=== PATIENT | female | born 1955 | race Caucasian/White ===

== ENCOUNTER 2020-04-18 14:33 | Emergency (ER) | payer MEDICARE, OTHER, SELFPAY ==
[~2020-04-18] VITALS: Ht 162.6 cm; Wt 122.2 kg
[2020-04-18 15:29] LABS: BASOPHILS % (AUTO) 1 % (0-1); EOSINOPHILS % (AUTO) 4 % (1-7); LYMPHOCYTES % (AUTO) 24 % (22-44); MEAN CORPUSCULAR HEMOGLOBIN 31.2 pg (27.0-34.8); MEAN CORPUSCULAR HGB CONC 33.7 g/dL (32.4-35.8); MEAN PLATELET VOLUME 8.4 fL (7.4-10.4); MONOCYTES % (AUTO) 6 % (2-9); NEUTROPHILS % (AUTO) 65 % (42-75); PLATELET COUNT 179 x10^3/uL (130-400); RED BLOOD COUNT 5.57 x10^6/uL (3.82-5.3); RED CELL DISTRIBUTION WIDTH 13.4 % (9.6-15.2)
[2020-04-18 15:31] LABS: ALANINE AMINOTRANSFERASE 30 U/L (12-78); ALBUMIN 3.6 g/dL (3.4-5.0); ANION GAP 4 mmol/L (5-15); CALCIUM 8.9 mg/dL (8.5-10.1); CHLORIDE 108 mmol/L (98-107); CREATININE 1.21 mg/dL (0.55-1.02)
[2020-04-18 15:36] LABS: ALKALINE PHOSPHATASE 89 U/L (45-117); BILIRUBIN,TOTAL 0.4 mg/dL (0.2-1.0); TOTAL PROTEIN 7.2 g/dL (6.4-8.2); TROPONIN I < 0.015 ng/mL (0.000-0.045)
--- NOTE | 2020-04-18 15:42 | NUR ---
PT CAME IN CO OF SOB AND "CHEST PRESSURE" X 2-3 MONTHS. PT WAS ALSO SENT FROM FOR HYPERTENSION. PT AMBULATED TO ROOM UNASSISTED. PT RESTING IN GURNEY. CONNECTED TO MONITORING EQUIPMENT. EKG COMPLETE
[2020-04-18 16:06] LABS: MD NO
[2020-04-18 17:01] VITALS: BP 160/84
--- NOTE | 2020-04-18 17:02 | NUR ---
PT UP FOR RECHECK. PT RESTING IN [facility]. VSS. NAD
[2020-04-18] MEDS ORDERED: CEFTRIAXONE 1,000 MG ONE (17:08)
[2020-04-18] MEDS ORDERED: CEFTRIAXONE 1,000 MG IM ONE (17:30)
== END 2020-04-18 17:34 | disposition home or self-care (01) ==
LOC: ED 17:28
DX: J15.9 Unspecified bacterial pneumonia (principal); R94.31 Abnormal electrocardiogram [ECG] [EKG]; R06.02 Shortness of breath; I10 Essential (primary) hypertension; F17.210 Nicotine dependence, cigarettes, uncomplicated
CPT/HCPCS: 36415; 71045; 80053; 83880; 84484; 85025; 93005; 96372; 99285; 99406; J0696

== ENCOUNTER 2020-08-04 18:16 | Emergency (ER) | payer MEDICARE ==
[~2020-08-04] VITALS: Ht 160 cm; Wt 119.7 kg
--- NOTE | 2020-08-04 18:36 | NUR ---
TIRE CARE MANAGER NOTE: PT'S URINE COLLECTED BY EDT, SENT TO LAB. PT AWAITING ROOM ASSIGNMENT IN LOBBY AT THIS TIME.
[2020-08-04 18:48] LABS: MICROSCOPIC NOT IND
[2020-08-04 18:57] LABS: BASOPHILS % (AUTO) 1 % (0-1); EOSINOPHILS % (AUTO) 3 % (1-7); LYMPHOCYTES % (AUTO) 21 % (22-44); MEAN CORPUSCULAR HEMOGLOBIN 32.1 pg (27.0-34.8); MEAN CORPUSCULAR HGB CONC 34.6 g/dL (32.4-35.8); MEAN PLATELET VOLUME 8.8 fL (7.4-10.4); MONOCYTES % (AUTO) 5 % (2-9); NEUTROPHILS % (AUTO) 69 % (42-75); PLATELET COUNT 174 x10^3/uL (130-400); RED BLOOD COUNT 5.54 x10^6/uL (3.82-5.3); RED CELL DISTRIBUTION WIDTH 13.8 % (9.6-15.2)
[2020-08-04 19:00] LABS: MD NO
[2020-08-04 19:10] LABS: ALANINE AMINOTRANSFERASE 28 U/L (12-78); ALBUMIN 3.7 g/dL (3.4-5.0); ANION GAP 6 mmol/L (5-15); CALCIUM 8.9 mg/dL (8.5-10.1); CHLORIDE 108 mmol/L (98-107); CREATININE 1.53 mg/dL (0.55-1.02)
[2020-08-04 19:12] LABS: ALKALINE PHOSPHATASE 74 U/L (45-117); BILIRUBIN,TOTAL 0.5 mg/dL (0.2-1.0); TOTAL PROTEIN 7.1 g/dL (6.4-8.2)
--- NOTE | 2020-08-04 19:45 | NUR ---
PT TO TRIAGE FOR VS RECHECK AT THIS TIME. PT AMBULATORY NO ASSIST
--- NOTE | 2020-08-04 20:36 | NUR ---
PT TO ROOM FROM LOBBIE Addendum: 08/04/20 at 2037 by MALU LOBBY*
[2020-08-04 20:48] VITALS: BP 162/73
--- NOTE | 2020-08-04 21:50 | NUR ---
PT WALKED OUT SELF WITH STEADY GAIT. IF S&S WORSEN RETURN TO ER.
== END 2020-08-04 21:52 | disposition home or self-care (01) ==
LOC: ED 21:23
DX: S39.012A Strain of muscle, fascia and tendon of lower back, initial encounter (principal); I10 Essential (primary) hypertension; F17.200 Nicotine dependence, unspecified, uncomplicated; X58.XXXA Exposure to other specified factors, initial encounter; Y93.89 Activity, other specified; Y92.89 Other specified places as the place of occurrence of the external cause; Y99.8 Other external cause status
CPT/HCPCS: 36415; 80053; 81003; 85025; 99283

== ENCOUNTER → 2020-08-10 | Outpatient (CLI) | payer MEDICARE | END | disposition home or self-care (01) | LOC: CFH 14:09 | PROVIDERS: ATTEND Internal Medicine | DX: J43.2 Centrilobular emphysema (principal); R91.8 Other nonspecific abnormal finding of lung field; G47.33 Obstructive sleep apnea (adult) (pediatric) | CPT/HCPCS: 71250 ==

== ENCOUNTER → 2020-11-09 | Outpatient (CLI) | payer MEDICARE ==
[~2020-11-09] MED LIST: ALBU8.5H8 INH; IBUP-1623 PO; LISI1TAB20 PO
[2020-11-09 13:12] LABS: ALANINE AMINOTRANSFERASE 29 U/L (12-78); ALBUMIN 3.4 g/dL (3.4-5.0); ANION GAP 5 mmol/L (5-15); CALCIUM 8.4 mg/dL (8.5-10.1); CHLORIDE 110 mmol/L (98-107); CREATININE 1.12 mg/dL (0.55-1.02)
[2020-11-09 13:16] LABS: ALKALINE PHOSPHATASE 72 U/L (45-117); BILIRUBIN,TOTAL 0.6 mg/dL (0.2-1.0)
[2020-11-09 13:28] LABS: BASOPHILS % (AUTO) 1 % (0-1); EOSINOPHILS % (AUTO) 3 % (1-7); LYMPHOCYTES % (AUTO) 23 % (22-44); MEAN CORPUSCULAR HEMOGLOBIN 32.5 pg (27.0-34.8); MEAN CORPUSCULAR HGB CONC 34.8 g/dL (32.4-35.8); MEAN PLATELET VOLUME 8.6 fL (7.4-10.4); MONOCYTES % (AUTO) 5 % (2-9); NEUTROPHILS % (AUTO) 67 % (42-75); PLATELET COUNT 161 x10^3/uL (130-400); RED BLOOD COUNT 5.41 x10^6/uL (3.82-5.3); RED CELL DISTRIBUTION WIDTH 13.6 % (9.6-15.2)
[2020-11-09 13:35] LABS: INTERNATIONAL NORMALIZED RATIO 0.96 (0.93-1.1); PROTHROMBIN TIME 10.3 Seconds (9.6-11.5)
== END | disposition home or self-care (01) ==
LOC: STAR 11:55
PROVIDERS: ATTEND Neurological Surgery
DX: Z01.818 Encounter for other preprocedural examination (principal); N95.0 Postmenopausal bleeding; N85.00 Endometrial hyperplasia, unspecified; D07.1 Carcinoma in situ of vulva; R94.31 Abnormal electrocardiogram [ECG] [EKG]; Z20.822 Contact with and (suspected) exposure to COVID-19
CPT/HCPCS: 36415; 71046; 80053; 85025; 85610; 85730; 86304; 93005; U0003; U0005

== ENCOUNTER 2020-11-15 12:58 | Day surgery (SDC) | payer MEDICARE ==
[~2020-11-15] VITALS: Ht 160 cm; Wt 115.6 kg
[2020-11-15] MEDS ORDERED: ACET325T14 PO (13:46)
[2020-11-15 13:48] VITALS: BP 126/81
[2020-11-15] MEDS ORDERED: CHLORHEXIDINE 15 ML UDC ONE (13:50)
[2020-11-15] MEDS ORDERED: CHLORHEXIDINE 15 ML UDC PO ONE (14:00)
[2020-11-15] MEDS ORDERED: CEFOTETAN PMX 2GM/50ML 50 ML IVPB ONE (14:00)
[2020-11-15] MEDS ORDERED: LACTATED RINGERS 1,000 ML IV SCH (14:00)
[2020-11-15] MEDS ORDERED: BUPIVACAINE/PF 0.25% ONE (14:00)
[2020-11-15] MEDS ORDERED: HEPARIN 1,000 UNITS/ML, 10ML ONE (14:01)
[2020-11-15] MEDS ORDERED: INDOCYANINE GREEN 25 MG VIAL ONE (14:01)
[2020-11-15] MEDS ORDERED: EPINEPHRINE 1 MG/ML, 1ML ONE (14:01)
[2020-11-15] MEDS ORDERED: MIDAZOLAM 1 MG/ML, 2ML ONE (15:25)
[2020-11-15] MEDS ORDERED: FENTANYL PF 250 MCG/5ML ONE (15:25)
[2020-11-15] MEDS ORDERED: ROCURONIUM 10MG/ML,5ML ONE (15:26)
[2020-11-15] MEDS ORDERED: CEFOTETAN 2 GM ONE (15:31)
[2020-11-15] MEDS ORDERED: DEXAMETHASONE 4 MG/ML, 1ML ONE (15:31)
[2020-11-15] MEDS ORDERED: EPHEDRINE 50 MG/ML, 1ML ONE (15:48)
[2020-11-15] MEDS ORDERED: ONDANSETRON 2MG/ML, 2ML IVPush PRN (16:30)
[2020-11-15] MEDS ORDERED: LABETALOL 5MG/ML, 20ML IV PRN (16:30)
[2020-11-15] MEDS ORDERED: PROMETHAZINE 25 MG/ML, 1ML IVPush PRN (16:30)
[2020-11-15] MEDS ORDERED: MEPERIDINE/PF 25MG/0.5ML IVPush PRN (16:30)
[2020-11-15] MEDS ORDERED: ACETAMINOPHEN 325 MG TABLET PO PRN (16:30)
[2020-11-15] MEDS ORDERED: OXYcodone 5 MG/5 ML ORAL.SOL UDC PO PRN (16:30)
[2020-11-15] MEDS ORDERED: HYDROmorphone 1 MG/ML, 1ML INJ IVPush PRN (16:30)
[2020-11-15] MEDS ORDERED: hydrALAzine 20 MG/ML, 1ML IV PRN (16:30)
[2020-11-15] MEDS ORDERED: PROPOFOL 10 MG/ML, 20ML ONE (16:43)
[2020-11-15] MEDS ORDERED: KETOROLAC 30 MG/1 ML ONE (16:43)
[2020-11-15] MEDS ORDERED: ONDANSETRON 2MG/ML, 2ML ONE ×2 (16:45→18:34)
[2020-11-15] MEDS ORDERED: OXYcodone 5 MG/5 ML ORAL.SOL UDC ONE (17:32)
[2020-11-15] MEDS ORDERED: FENTANYL PF 100 MCG/2ML ONE (17:32)
[2020-11-15] MEDS: FENTANYL PF 100 MCG/2ML IV PRN ×2 (17:38→17:43)
[2020-11-15] MEDS ORDERED: HYDROmorphone 1 MG/ML, 1ML INJ ONE (18:05)
== END 2020-11-15 19:35 | disposition home or self-care (01) ==
LOC: OUT 12:58
PROVIDERS: ATTEND Specialist
DX: D07.1 Carcinoma in situ of vulva (principal); N85.00 Endometrial hyperplasia, unspecified; N83.202 Unspecified ovarian cyst, left side; N83.201 Unspecified ovarian cyst, right side; I25.10 Atherosclerotic heart disease of native coronary artery without angina pectoris; G47.33 Obstructive sleep apnea (adult) (pediatric); I10 Essential (primary) hypertension; F12.90 Cannabis use, unspecified, uncomplicated; F17.210 Nicotine dependence, cigarettes, uncomplicated; Z79.899 Other long term (current) drug therapy; Z98.890 Other specified postprocedural states
CPT/HCPCS: 36415; 56620; 58571; 86850; 86900; 86923; 88305; 88307; J0171; J1100; J1170; J1885; J2250; J2405; J2704; J3010; J7120; J1644

== ENCOUNTER → 2021-01-18 | Outpatient (CLI) | payer MEDICARE ==
[~2021-01-18] MED LIST changes: +ACET325T14 PO
== END | disposition home or self-care (01) ==
LOC: CFH 10:27
PROVIDERS: ATTEND Internal Medicine
DX: R91.8 Other nonspecific abnormal finding of lung field (principal); J43.2 Centrilobular emphysema
CPT/HCPCS: 71250